=== PATIENT | female | born 1950 | race Caucasian/White ===

== ENCOUNTER 2020-09-16 16:34 | Inpatient (IN) | payer MEDICARE, OTHER ==
[~2020-09-16] VITALS: Ht 170.2 cm; Wt 96.6 kg
--- NOTE | 2020-09-16 16:38 | NUR ---
PT IS IN ROOM #1B UNDER DIRECT OBSERVATION OF YEIMI CURIEL. NO S/S OF DISTRESS AT THIS TIME.
[2020-09-16] MEDS ORDERED: OMEP40CA13 PO (16:52)
[2020-09-16] MEDS ORDERED: LEVO75TA7 PO (16:52)
[2020-09-16] MEDS ORDERED: SIMV-46 PO (16:52)
[2020-09-16] MEDS ORDERED: DIVA250T4 PO (16:52)
[2020-09-16] MEDS ORDERED: TRAM50TA PO (16:52)
[2020-09-16] MEDS ORDERED: TEMA30CA5 PO (16:52)
[2020-09-16] MEDS ORDERED: ARIP5TAB10 PO (16:52)
[2020-09-16] MEDS ORDERED: CITA40TA22 PO (16:52)
[2020-09-16] MEDS ORDERED: LACT1CAP71 PO (16:52)
[2020-09-16] MEDS ORDERED: VALS40TA4 PO (16:52)
[2020-09-16] MEDS ORDERED: LORAZEPAM 1 MG TABLET ONE (16:59)
[2020-09-16] MEDS ORDERED: LORAZEPAM 1 MG TABLET PO ONE (17:00)
[2020-09-16 17:05] LABS: BASOPHILS # (AUTO) 0.1 K/uL (0.0-8.0); BASOPHILS % (AUTO) 0.9 % (0.0-2.0); EOSINOPHILS % (AUTO) 0.4 % (0.0-7.0); HEMATOCRIT 44.7 % (31.2-41.9); HEMOGLOBIN 15.1 g/dL (10.9-14.3); LYMPHOCYTES # (AUTO) 2.2 K/uL (20.0-40.0); LYMPHOCYTES % (AUTO) 20.8 % (20.5-51.5); MEAN CORPUSCULAR HEMOGLOBIN 30.5 uug (24.7-32.8); MEAN CORPUSCULAR HGB CONC 34 g/dL (32.3-35.6); MEAN CORPUSCULAR VOLUME 90.3 fL (75.5-95.3); MONOCYTES # (AUTO) 1.2 K/uL (2.0-10.0); MONOCYTES % (AUTO) 11.4 % (0.0-11.0); NEUTROPHILS # (AUTO) 7.1 K/uL (1.8-8.9); NEUTROPHILS % (AUTO) 66.5 % (38.5-71.5); PLATELET COUNT (AUTO) 279 K/uL (179-408); RED BLOOD CELL COUNT(AUTO) 4.95 MIL/uL (3.63-4.92); WHITE BLOOD COUNT (AUTO) 10.6 K/uL (3.8-11.8)
[2020-09-16 17:10] LABS: CARBON DIOXIDE 25 mmol/L (21-32); CHLORIDE 104 mmol/L (98-107); CREATININE 0.7 mg/dL (0.6-1.3); GLUCOSE 94 mg/dL (74-106); POTASSIUM 3.2 mmol/L (3.5-5.1); UREA NITROGEN, BLOOD 9 mg/dL (7-18)
[2020-09-16 17:13] LABS: ETHANOL < 3 MG/DL (0-0)
[2020-09-16 17:19] LABS: MAGNESIUM 2.1 mg/dL (1.8-2.4); PHOSPHOROUS 2.6 mg/dL (2.5-4.9)
[2020-09-16 17:21] LABS: ACETAMINOPHEN < 2.0 ug/mL (10-30); ALANINE AMINOTRANSFERASE 23 U/L (14-59); ALKALINE PHOSPHATASE 62 U/L (50-136); ASPARTATE AMINOTRANSFERASE 11 U/L (15-37); BILIRUBIN,DIRECT 0.2 mg/dL (0.0-0.2); BILIRUBIN,TOTAL 0.6 mg/dL (0.2-1.0); TOTAL PROTEIN, SERUM 7.4 g/dL (6.4-8.2)
[2020-09-16 17:28] LABS: *BILIRUBIN,URIN NEGATIVE (NEGATIVE); *BLOOD, URINE NEGATIVE (NEGATIVE); *CLARITY,URINE CLEAR (CLEAR); *COLOR,URINE LIGHT YELLOW (YELLOW); *KETONES,URINE NEGATIVE (NEGATIVE); *UROBILINOGEN,URINE 0.2 E.U./dl (NORMAL); LEUKOCYTE ESTERASE ,URINE NEGATIVE (NEGATIVE); NITRITE, URINE NEGATIVE (NEGATIVE); UGLUCOSE NEGATIVE (NEGATIVE)
[2020-09-16 17:35] LABS: *AMPHETAMINE, URINE NEGATIVE (NEGATIVE); *CANNABINOID, URINE POSITIVE (NEGATIVE); *COCCAINE, URINE NEGATIVE (NEGATIVE); *OPIATE, URINE NEGATIVE (NEGATIVE); *PHENCYCLIDINE SCREEN,URINE NEGATIVE (NEGATIVE)
[2020-09-16] MEDS ORDERED: POTASSIUM CHLORIDE 20 MEQ TAB.PRT.SR PO ONE (18:00)
[2020-09-16] MEDS ORDERED: [UNRECOGNIZED DRUG - CODE] PO (18:12)
[2020-09-16] MEDS ORDERED: ACETAMINOPHEN 325 MG TABLET PO PRN (18:15)
[2020-09-16] MEDS ORDERED: MAG HYDROX/AL HYDROX/SIMETH 30 ML LIQUID UDC PO PRN (18:15)
[2020-09-16] MEDS ORDERED: POTASSIUM CHLORIDE 20 MEQ TAB.PRT.SR ONE (18:29)
--- NOTE | 2020-09-16 18:30 | NUR ---
Gps/Building Carpenter Helper- Received report from [facility] . Received via wheel chair from ER, alert, oriented x4 , extremely anxious , angry affect , upset that staff has to take away her cell phone , and belongings. Informed patient, rules of the unit, and routines. Complained of pain all over 710 r/t fibromyalgia . Per report from ER ([facility]) patient was given tramadol 50 mg po 1 tab. @ 1810 , K+ 40 meq. 1 tab was also given in ER for K+ 3.2. Ativan 1 mg 1 tab po was given in ER for extreme anxiety 1 hour ago..Refused to be weighed , claimed she does no want to be depressed from knowing her actual weight, per pt. her weight was 220 lbs. Oriented to unit settings.
--- NOTE | 2020-09-16 18:40 | NUR ---
REPORT WAS GIVEN TO RN MHU. PT WAS TRANSFERED TO ROOM #140B.
[2020-09-16 19:04] VITALS: BP 150/69
[2020-09-16] MEDS: SIMVASTATIN 20 MG TABLET PO SCH (20:03)
[2020-09-16] MEDS: CLONAZEPAM 0.5 MG TABLET PO PRN (20:03)
[2020-09-16] MEDS: TRAMADOL HCL 50 MG TABLET PO PRN (20:04)
[2020-09-16 20:17] VITALS: BP 120/63
--- NOTE | 2020-09-16 21:34 | NUR ---
Received patient AAOx3 walking around the unit. No s/s of acute distress noted at this time. Patient compliant with medications. Administered pain medication per patient request and medication order. Patient received patient rights information. Pleasant upon interaction. Safety measures in place and will continue with plan of care.
--- NOTE | 2020-09-17 05:40 | NUR ---
Patient slept 7.30 hours. Compliant with medications and plan of care.
[2020-09-17] MEDS: LEVOTHYROXINE SODIUM 75 MCG TABLET PO SCH (06:12)
[2020-09-17] MEDS: PANTOPRAZOLE SODIUM 40 MG TABLET.DR PO SCH (06:12)
[2020-09-17 07:30] VITALS: BP 148/75
[2020-09-17] MEDS ORDERED: Medication Not On Formulary EA (Omeprazole 40 MG) PO SCH (09:00)
[2020-09-17] MEDS: CLONAZEPAM 0.5 MG TABLET PO PRN ×3 (09:01→19:59)
[2020-09-17] MEDS: VALSARTAN 40 MG TABLET PO SCH (10:49)
[2020-09-17] MEDS: TRAMADOL HCL 50 MG TABLET PO PRN ×2 (15:57→22:35)
[2020-09-17 16:00] VITALS: BP 145/75
[2020-09-17] MEDS: SIMVASTATIN 20 MG TABLET PO SCH (17:37)
[2020-09-17] MEDS: CITALOPRAM 20 MG TABLET PO SCH (17:39)
[2020-09-17] MEDS: DIVALPROEX 250 MG TABLET.DR PO SCH (17:39)
[2020-09-17] MEDS: ARIPIPRAZOLE 10 MG TABLET PO SCH (20:03)
[2020-09-17 20:15] VITALS: BP 132/61
[2020-09-17] MEDS: TEMAZEPAM 7.5 MG CAPSULE PO PRN (21:41)
--- NOTE | 2020-09-18 06:19 | NUR ---
Received Pt on the phone in her room. Pt stayed on the phone until it shut off at 2200. Pt was emotional and upset on approach, stated she "needed the phone back to speak to my family." Pt was fixated with the phone and seeking medication "to help with sleep, I haven't slept in 10 days, I'm manic bipolar for years, no medication works for me." Pt was tangential and hyperverbal with pressured speech. Continued compliance encouraged, therapeutic support provided. Pt was notably anxious and restless, Klonopin 0.5mg administered at 1958 and 629 with moderate effect. Denies current thoughts of ST and verbally contracts for safety. Restoril given at 2140 for insomnia. Ultram 100mg administered at 2234 for (R) leg pain with good effect. VS stable.
[2020-09-18] MEDS: CLONAZEPAM 0.5 MG TABLET PO PRN ×4 (06:25→21:25)
[2020-09-18] MEDS: PANTOPRAZOLE SODIUM 40 MG TABLET.DR PO SCH (06:36)
[2020-09-18] MEDS: LEVOTHYROXINE SODIUM 75 MCG TABLET PO SCH (06:36)
[2020-09-18] MEDS: TRAMADOL HCL 50 MG TABLET PO PRN ×2 (06:57→18:12)
[2020-09-18 07:30] VITALS: BP 141/60
[2020-09-18] MEDS: CITALOPRAM 20 MG TABLET PO SCH (08:18)
[2020-09-18] MEDS: DIVALPROEX 250 MG TABLET.DR PO SCH ×3 (08:18→16:32)
[2020-09-18] MEDS: VALSARTAN 40 MG TABLET PO SCH (08:18)
[2020-09-18 08:19] LABS: BILIRUBIN,TOTAL 0.6 mg/dL (0.2-1.0); CREATININE 0.7 mg/dL (0.6-1.3); POTASSIUM 3.7 mmol/L (3.5-5.1); TOTAL PROTEIN, SERUM 6.9 g/dL (6.4-8.2)
[2020-09-18 08:23] LABS: THYROID STIMULATING HORMONE 3.171 mIU/mL (0.358-3.740)
[2020-09-18] MEDS: MAGNESIUM HYDROXIDE 30 ML LIQUID UDC PO PRN (12:29)
[2020-09-18 16:00] VITALS: BP 160/58
[2020-09-18] MEDS: SIMVASTATIN 20 MG TABLET PO SCH (17:22)
[2020-09-18 20:07] VITALS: BP 167/70
[2020-09-18] MEDS: ARIPIPRAZOLE 10 MG TABLET PO SCH (20:11)
[2020-09-18] MEDS: TEMAZEPAM 7.5 MG CAPSULE PO PRN (21:48)
[2020-09-19] MEDS: PANTOPRAZOLE SODIUM 40 MG TABLET.DR PO SCH (06:13)
[2020-09-19] MEDS: LEVOTHYROXINE SODIUM 75 MCG TABLET PO SCH (06:13)
[2020-09-19] MEDS: TRAMADOL HCL 50 MG TABLET PO PRN ×2 (07:04→18:05)
[2020-09-19 07:30] VITALS: BP 148/75
[2020-09-19] MEDS: CITALOPRAM 20 MG TABLET PO SCH (08:16)
[2020-09-19] MEDS: VALSARTAN 40 MG TABLET PO SCH (08:16)
[2020-09-19] MEDS: DIVALPROEX 250 MG TABLET.DR PO SCH ×3 (08:16→16:10)
--- NOTE | 2020-09-19 11:42 | NUR ---
CRISTIAN Initial Discharge: Patient currently resides at home [address] [facility] [address], [place] [address] ([phone]) by herself. Patient would like to return home upon discharge. Patient's daughter Rola Alvarez ([phone]) is involved in the patient's care. CRISTIAN will continue to work with patient, family, and MD to ensure a safe and proper discharge plan.
--- NOTE | 2020-09-19 11:43 | NUR ---
CRISTIAN Family Contact: SW spoke with patient's daughter Rola Alvarez ([phone]) and discussed treatment and discharge.
--- NOTE | 2020-09-19 11:50 | NUR ---
Firearms Report: Proprietary Trader completed and submitted a [employer] firearms report for 5150 danger to self certifications. A copy of report has been placed in patient chart.
[2020-09-19] MEDS: CLONAZEPAM 0.5 MG TABLET PO PRN ×3 (12:05→20:13)
--- NOTE | 2020-09-19 12:27 | NUR ---
Brief Substance Abuse Intervention: Patient was provided with a brief substance abuse intervention and referred to the following substance abuse programs: [facility] Substance Abuse Self-helpline ([phone]); [facility] [address] [place] [address] ([phone]); [facility] [address] [facility] [address] ([phone]); [facility] ([phone]); [facility] ([phone]); [facility] ([phone]); [facility] ([phone]).
[2020-09-19 15:14] VITALS: BP 139/82
[2020-09-19] MEDS: SIMVASTATIN 20 MG TABLET PO SCH (17:13)
[2020-09-19 20:00] VITALS: BP 146/63
[2020-09-19] MEDS: ARIPIPRAZOLE 10 MG TABLET PO SCH (20:13)
[2020-09-19] MEDS: TEMAZEPAM 7.5 MG CAPSULE PO PRN (21:13)
[2020-09-20] MEDS: PANTOPRAZOLE SODIUM 40 MG TABLET.DR PO SCH (06:13)
[2020-09-20] MEDS: LEVOTHYROXINE SODIUM 75 MCG TABLET PO SCH (06:13)
[2020-09-20 07:30] VITALS: BP 146/81
[2020-09-20] MEDS: TRAMADOL HCL 50 MG TABLET PO PRN ×2 (08:31→17:04)
[2020-09-20] MEDS: CITALOPRAM 20 MG TABLET PO SCH (08:39)
[2020-09-20] MEDS: DIVALPROEX 250 MG TABLET.DR PO SCH ×3 (08:39→16:40)
[2020-09-20] MEDS: VALSARTAN 40 MG TABLET PO SCH (08:39)
[2020-09-20] MEDS: CLONAZEPAM 0.5 MG TABLET PO PRN ×2 (12:29→17:12)
[2020-09-20 16:00] VITALS: BP 146/70
[2020-09-20] MEDS: HYDROCORTISONE 1% CREAM 30 GM TUBE TP PRN (17:36)
[2020-09-20] MEDS: SIMVASTATIN 20 MG TABLET PO SCH (18:08)
[2020-09-20] MEDS: ARIPIPRAZOLE 10 MG TABLET PO SCH (20:03)
[2020-09-20] MEDS: TEMAZEPAM 7.5 MG CAPSULE PO PRN (21:04)
[2020-09-20 21:11] VITALS: BP 142/67
[2020-09-21] MEDS: CLONAZEPAM 0.5 MG TABLET PO PRN ×3 (03:48→14:32)
[2020-09-21] MEDS: PANTOPRAZOLE SODIUM 40 MG TABLET.DR PO SCH (06:19)
[2020-09-21] MEDS: LEVOTHYROXINE SODIUM 75 MCG TABLET PO SCH (06:19)
[2020-09-21 07:55] VITALS: BP 159/83
[2020-09-21] MEDS: VALSARTAN 40 MG TABLET PO SCH (08:00)
[2020-09-21] MEDS: CITALOPRAM 20 MG TABLET PO SCH (08:01)
[2020-09-21] MEDS: TRAMADOL HCL 50 MG TABLET PO PRN ×2 (08:01→16:25)
[2020-09-21] MEDS: DIVALPROEX 250 MG TABLET.DR PO SCH ×3 (08:01→16:19)
--- NOTE | 2020-09-21 10:34 | NUR ---
SW Individual Note: SW met with patient due to patient becoming anxious, agitated, and fixated on being discharge from the hospital. SW educated patient regarding hospitalization, PC hearing, and that the MD will discharge the patient upon being stable. Patient stated "they put words in my mouth I was never suicidal". SW redirected patient however patient is not receptive at this time. SW encouraged patient to express her feelings with the psychiatrist.
--- NOTE | 2020-09-21 10:36 | NUR ---
CRISTIAN Family Contact: SW spoke with patient's daughter, Rola ([phone]) and updated on patient's current treatment plan and discharge plan. Rola is understanding of the reasons the patient is hospitalized and stated that the patient keeps calling her telling her to pick her up. Rola stated that she will wait for the MD or court to release the patient.
[2020-09-21] MEDS: HYDROCORTISONE 1% CREAM 30 GM TUBE TP PRN (11:10)
--- NOTE | 2020-09-21 15:12 | NUR ---
patient guarded, withdrawn, and anxious. she has minimal interaction with peers. she appears disheveled and unkempt. patient is medication seeking with PRN Klonopin and Tramadol. she is provided with education about coping skills for pain and anxiety but stating "nothing works" and continues asking for medications. patient is adherent with prescribed medications, no adverse reaction noted. patient denies SI/HI, denies AH/VH. she is minimizing reason for admission. she is able to perform self care and ADL's independently. patient encouraged to participate in the unit milieu. able to communicate needs to staff appropriately.
[2020-09-21 16:00] VITALS: BP 136/63
[2020-09-21] MEDS: SIMVASTATIN 20 MG TABLET PO SCH (17:10)
[2020-09-21] MEDS: ARIPIPRAZOLE 10 MG TABLET PO SCH (20:14)
[2020-09-21 20:35] VITALS: BP 128/73
[2020-09-21] MEDS: TEMAZEPAM 7.5 MG CAPSULE PO PRN (21:18)
[2020-09-22] MEDS: PANTOPRAZOLE SODIUM 40 MG TABLET.DR PO SCH (06:13)
[2020-09-22] MEDS: LEVOTHYROXINE SODIUM 75 MCG TABLET PO SCH (06:13)
[2020-09-22] MEDS: TRAMADOL HCL 50 MG TABLET PO PRN ×2 (06:28→17:37)
[2020-09-22 07:30] VITALS: BP 134/65
[2020-09-22] MEDS: VALSARTAN 40 MG TABLET PO SCH (08:43)
[2020-09-22] MEDS: DIVALPROEX 250 MG TABLET.DR PO SCH ×3 (08:44→17:32)
[2020-09-22] MEDS: CITALOPRAM 20 MG TABLET PO SCH (08:44)
[2020-09-22] MEDS: CLONAZEPAM 0.5 MG TABLET PO PRN (08:50)
--- NOTE | 2020-09-22 11:47 | NUR ---
CRISTIAN PC Hearing: Patient had 5250 probable cause hearing today and it was upheld for grave disability.
--- NOTE | 2020-09-22 14:00 | NUR ---
CRISTIAN Family Contact: CRISTIAN spoke with patient's daughter, Rola ([phone]) and informed of patient's discharge date set for Saturday. Rola stated she will picker machine operator the patient at 11am.
--- NOTE | 2020-09-22 15:34 | NUR ---
Gps/Launch Leader- Stayed in her room most of the afternoon,interacting with her roommate,denies any discomfort at this time.
[2020-09-22 16:00] VITALS: BP 121/61
[2020-09-22] MEDS: SIMVASTATIN 20 MG TABLET PO SCH (17:32)
[2020-09-22] MEDS: ARIPIPRAZOLE 10 MG TABLET PO SCH (20:09)
[2020-09-22 20:22] VITALS: BP 132/72
[2020-09-22] MEDS: TEMAZEPAM 7.5 MG CAPSULE PO PRN (22:22)
[2020-09-23] MEDS: TRAMADOL HCL 50 MG TABLET PO PRN ×2 (05:26→17:55)
[2020-09-23] MEDS: PANTOPRAZOLE SODIUM 40 MG TABLET.DR PO SCH (06:02)
[2020-09-23] MEDS: LEVOTHYROXINE SODIUM 75 MCG TABLET PO SCH (06:02)
[2020-09-23] MEDS: CLONAZEPAM 0.5 MG TABLET PO PRN ×2 (06:30→17:54)
[2020-09-23 07:30] VITALS: BP 133/73
[2020-09-23] MEDS: DIVALPROEX 250 MG TABLET.DR PO SCH ×3 (08:14→16:12)
[2020-09-23] MEDS: VALSARTAN 40 MG TABLET PO SCH (08:14)
[2020-09-23] MEDS: CITALOPRAM 20 MG TABLET PO SCH (08:14)
--- NOTE | 2020-09-23 11:59 | NUR ---
WOUND CARE CONSULT: PT PRESENTS WITH RASHES TO BREASTFOLDS AND ABDOMINAL/GROIN FOLDS, PRESENT ON ADMISSION. RECOMMENDATIONS MADE FOR SKIN CARE AND PROTECTION. DISCUSSED WITH NURSING STAFF. IN AGREEMENT WITH PLAN OF CARE. Addendum: 09/23/20 at 1159 by CACHORRO HARRIS RN Amended: Links added.
[2020-09-23] MEDS ORDERED: Z GUARD REMEDY PASTE 57 GM TUBE TOP PRN (12:00)
[2020-09-23] MEDS: MAGNESIUM HYDROXIDE 30 ML LIQUID UDC PO PRN (14:12)
[2020-09-23] MEDS: CLOTRIMAZOLE 1% CREAM 30 GM TUBE TOP SCH (16:00)
[2020-09-23] MEDS: Z GUARD REMEDY PASTE 57 GM TUBE TOP SCH (16:00)
--- NOTE | 2020-09-23 16:11 | NUR ---
EARLY ENTRY - DISCHARGE NOTE: Patient will be discharged home with her daughter daughter Rola Alvarez ([phone]) [address] [place] [address]. Rola will be providing transportation for the patient today at 11AM. Patent is alert and oriented x4 and is aware and agreeable with discharge plan. Patient presents with euthymic mood and congruent affect. Patient denies suicidal or homicidal ideation. Patient will be following up with her primary care physician Dr. Tyler Bruno [address] [facility] [address] [place] [address] ([phone]) and has an appointment scheduled on October 03, 2020 via telehealth at 9:45am. Patient will be following up with her psychiatrist Dr. Clif Huizar [address] [place], [address] ([phone]) and has an appointment scheduled on September 26, 2020 at 1:45pm. Patient was provided with a brief substance abuse intervention and referred to the following substance abuse programs for marijuana and cigarette use: [facility] Substance Abuse Self-helpline ([phone]); [facility] [address] [place] [address] ([phone]); [facility] [address] [facility] [address] ([phone]); [facility] ([phone]); [facility] ([phone]); [facility] ([phone]); [facility] ([phone]). For smoking cessation, patient was referred to [employer] 800-LUNGUSA and [employer] ([phone]).
[2020-09-23] MEDS: SIMVASTATIN 20 MG TABLET PO SCH (16:12)
[2020-09-23 16:33] VITALS: BP 122/69
[2020-09-23] MEDS: ARIPIPRAZOLE 10 MG TABLET PO SCH (20:27)
[2020-09-23 20:49] VITALS: BP 128/94
[2020-09-23] MEDS: TEMAZEPAM 7.5 MG CAPSULE PO PRN (21:44)
[2020-09-24] MEDS: TRAMADOL HCL 50 MG TABLET PO PRN (04:57)
--- NOTE | 2020-09-24 05:23 | NUR ---
Patient slept 4.15 hours.
[2020-09-24] MEDS: LEVOTHYROXINE SODIUM 75 MCG TABLET PO SCH (06:03)
[2020-09-24] MEDS: PANTOPRAZOLE SODIUM 40 MG TABLET.DR PO SCH (06:03)
[2020-09-24 07:30] VITALS: BP 128/55
[2020-09-24 08:04] VITALS: BP 128/59
[2020-09-24] MEDS: Z GUARD REMEDY PASTE 57 GM TUBE TOP SCH (08:04)
[2020-09-24] MEDS: CLOTRIMAZOLE 1% CREAM 30 GM TUBE TOP SCH (08:04)
[2020-09-24] MEDS: DIVALPROEX 250 MG TABLET.DR PO SCH (08:04)
[2020-09-24] MEDS: VALSARTAN 40 MG TABLET PO SCH (08:04)
[2020-09-24] MEDS: CITALOPRAM 20 MG TABLET PO SCH (08:04)
[2020-09-24] MEDS: CLONAZEPAM 0.5 MG TABLET PO PRN (08:41)
--- NOTE | 2020-09-24 10:42 | NUR ---
Gps/senior storage administrator- Daughter to to provide transportation . all belongings /valuables given back to patient. reviewed diet, prescriptions, safety, skin care, follow up with her Doctors as recommended, patient verbalized understanding..prescription of abilify 15 mg. po. was called in to her Pharmacy w/c delivers her medications, left message , [facility] pharmacy [facility] open saturday-saturday, informed pt. Claimed she has most of her medications, except abilify, informed she can have it filled up to other pharmacy for now,.
== END 2020-09-24 11:30 | disposition home or self-care (01) | DRG 885 ==
LOC: ER 16:34 → GPS 18:02
PROVIDERS: ADMIT Psychiatry & Neurology Psychiatry; ATTEND Nurse Practitioner Acute Care
DX: F31.60 Bipolar disorder, current episode mixed, unspecified (principal); F23 Brief psychotic disorder; E87.6 Hypokalemia; G89.4 Chronic pain syndrome; F17.210 Nicotine dependence, cigarettes, uncomplicated; E03.9 Hypothyroidism, unspecified; I10 Essential (primary) hypertension; M79.7 Fibromyalgia; F41.9 Anxiety disorder, unspecified; Z79.890 Hormone replacement therapy
CPT/HCPCS: 36415; 70030-TC; 71045; 83735; 84100; 84443; 85025; 93005; A4663; G0480; J3490